=== PATIENT | male | born 1960 | race Caucasian/White ===

== ENCOUNTER 2019-09-27 02:08 | Outpatient (CLI) | payer BC, SELFPAY ==
[2019-09-27 15:56] LABS: Prothrombin Time 19.6 sec (9.3-11.0)
== END 2019-09-27 02:28 ==
PROVIDERS: Visit Provider Internal Medicine
DX: Z79.01 Long term (current) use of anticoagulants (principal)
CPT/HCPCS: 36415; 85610

== ENCOUNTER 2019-12-20 03:13 | Outpatient (CLI) | payer BC, SELFPAY ==
[2019-12-20 14:46] LABS: INR 3.8 (0.9-1.1); Prothrombin Time 36.9 sec (9.3-11.0)
== END 2019-12-20 03:33 ==
PROVIDERS: PCP Internal Medicine; Visit Provider Internal Medicine
DX: I67.89 Other cerebrovascular disease (principal); Z79.01 Long term (current) use of anticoagulants
CPT/HCPCS: 36415; 85610

== ENCOUNTER 2020-01-19 02:47 | Outpatient (CLI) | payer BC, SELFPAY ==
[2020-01-19 07:43] LABS: Prothrombin Time 29.1 sec (9.3-11.0)
== END 2020-01-19 03:07 ==
PROVIDERS: PCP Internal Medicine; Visit Provider Internal Medicine
DX: I26.99 Other pulmonary embolism without acute cor pulmonale (principal); I80.209 Phlebitis and thrombophlebitis of unspecified deep vessels of unspecified lower extremity; Z79.01 Long term (current) use of anticoagulants
CPT/HCPCS: 36415; 85610

== ENCOUNTER 2020-02-09 01:55 | Outpatient (CLI) | payer BC, SELFPAY | END 2020-02-09 02:15 | PROVIDERS: PCP Internal Medicine; Visit Provider Internal Medicine | DX: I26.99 Other pulmonary embolism without acute cor pulmonale (principal); I80.209 Phlebitis and thrombophlebitis of unspecified deep vessels of unspecified lower extremity; Z79.01 Long term (current) use of anticoagulants | CPT/HCPCS: 36415; 85610 ==

== ENCOUNTER 2021-01-07 03:30 | Outpatient (CLI) | payer BC, SELFPAY ==
[2021-01-07 08:45] LABS: INR 3.7 (0.9-1.1); Prothrombin Time 35.9 sec (9.3-11.0)
== END 2021-01-07 03:31 | disposition home or self-care (01) ==
LOC: LBO 03:30
PROVIDERS: PCP Internal Medicine; Visit Provider Internal Medicine
DX: I26.99 Other pulmonary embolism without acute cor pulmonale (principal); Z79.01 Long term (current) use of anticoagulants
CPT/HCPCS: 36415; 85610